=== PATIENT | male | born 1980 | race African-American/Black ===

== ENCOUNTER 2016-12-11 14:39 | Emergency (ER) | payer OTHER ==
[~2016-12-11] VITALS: Ht 170.2 cm; Wt 72.6 kg
[2016-12-11 14:56] VITALS: BP 135/80
== END 2016-12-11 19:48 | disposition home or self-care (01) ==
LOC: ER 14:41
DX: S96.912A Strain of unspecified muscle and tendon at ankle and foot level, left foot, initial encounter (principal); X58.XXXA Exposure to other specified factors, initial encounter; Y92.89 Other specified places as the place of occurrence of the external cause; Y93.89 Activity, other specified; Y99.8 Other external cause status
CPT/HCPCS: 73630; 99284; A4606; Z7610